=== PATIENT | female | born 1975 | race Hispanic/Latino ===

== ENCOUNTER 2019-08-12 13:51 | Emergency (ER) | payer SELFPAY ==
[2019-08-12 14:47] LABS: #Basophils 0.1 thou/uL (0.0-0.2); #Eosinphils 0.1 thou/uL (0.0-0.7); #Lymphocytes 1.5 thou/uL (1.20-3.40); #Monocytes 0.4 thou/uL (0.11-0.59); #Neutrophils 6.2 thou/uL (1.40-6.50); %Basophils 0.8 % (0.0-1.0); %Eosinophils 1.8 % (0.0-10.0); %Lymphocytes 17.9 % (21.0-51.0); %Monocytes 4.3 % (0.0-10.0); %Neutrophils 75.3 % (42.0-75.0); Hemoglobin 14.8 g/dL (12.0-16.0); Mean Corpuscular HGB CONC 33.8 g/dL (32.0-36.0); Mean Corpuscular Hemoglobin 30.5 pg (27.0-31.0); Mean Corpuscular Volume 90.4 fL (78.0-98.0); Mean Platelet Volume 8.7 fL (7.4-10.4); Platelet Count 265 thou/uL (130-400); RBC Distribution Width 12.2 % (11.5-14.5); Red Blood Cell (RBC) Count 4.85 mill/uL (4.20-5.40); White Blood Cell (WBC) Count 8.3 thou/uL (4.8-10.8)
[2019-08-12 14:50] LABS: BHCG - Serum POSITIVE (NEGATIVE); Pregs Control Background? CLEAR/WHITE (CLR/WHITE); Pregs Control Bar Appear? YES (CONTROL BAR)
[2019-08-12 15:07] LABS: Bacteria/HPF None Seen HPF (None Seen); Bilirubin Negative (Negative); Blood, Urine 2+ (Negative); Clarity Clear (Clear); Glucose, Urine (Dipstick) Normal (Negative); Leukocyte Negative Leu/uL (Negative); Nitrite Negative (Negative); Protein, Urine (Dipstick) Negative (Neg-Trace); Squamous Epithelial 0-3 HPF (0-3); Urobilinogen Normal mg/dL (Less than 2); WBC/HPF 0-3 HPF (0-3)
--- NOTE | 2019-08-12 15:48 | ULT ---
ULTRASOUND PELVIC ULTRASOUND TRANSVAGINAL DOPPLER DUPLEX: DATE: 08/12/2019 HISTORY: 44 year old female with first trimester vaginal bleeding. TECHNIQUE: Transabdominal transducer and endovaginal transducer used to visualize intrapelvic contents with gr scale, color-flow, and spectral analysis. FINDINGS: There is a misshapen gestational sac which is disproportionately large compared to the size of the fe karol pole. Biggs-rump length is 2.4 cm, corresponding to 9 weeks 0 days gestational age. No heart activity is detected. No subchorionic hemorrhage. Right ovary 2 x 2.5 x 1.5 cm with a 1 cm corpus luteal cyst, and blood flow demonstrated. Left ovary not visualized No free fluid in the cul-de-sac. IMPRESSION: First trimester intrauterine demise: Missed
== END 2019-08-12 15:51 | disposition home or self-care (01) ==
LOC: ERS 13:51
DX: O20.0 Threatened abortion (principal); Z3A.08 8 weeks gestation of pregnancy
CPT/HCPCS: 36415; 76856; 81003; 81015; 84702; 84703; 85025; 86900; 86901

== ENCOUNTER 2019-08-13 18:09 | Emergency (ER) | payer SELFPAY | END 2019-08-13 19:12 | disposition home or self-care (01) | LOC: ERS 18:09 | DX: O02.1 Missed abortion (principal); E78.5 Hyperlipidemia, unspecified; E78.00 Pure hypercholesterolemia, unspecified | CPT/HCPCS: 99283 ==

== ENCOUNTER 2019-08-13 21:59 | Emergency (ER) | payer SELFPAY ==
[2019-08-13 22:58] LABS: #Basophils 0.1 thou/uL (0.0-0.2); #Eosinphils 0.1 thou/uL (0.0-0.7); #Lymphocytes 1.4 thou/uL (1.20-3.40); #Monocytes 0.6 thou/uL (0.11-0.59); #Neutrophils 9.2 thou/uL (1.40-6.50); %Basophils 0.5 % (0.0-1.0); %Lymphocytes 12.1 % (21.0-51.0); %Monocytes 4.9 % (0.0-10.0); %Neutrophils 81.5 % (42.0-75.0); Hemoglobin 12.7 g/dL (12.0-16.0); Mean Corpuscular HGB CONC 33.6 g/dL (32.0-36.0); Mean Corpuscular Hemoglobin 30.5 pg (27.0-31.0); Mean Corpuscular Volume 90.8 fL (78.0-98.0); Mean Platelet Volume 8.6 fL (7.4-10.4); Platelet Count 211 thou/uL (130-400); RBC Distribution Width 12.2 % (11.5-14.5); Red Blood Cell (RBC) Count 4.16 mill/uL (4.20-5.40); White Blood Cell (WBC) Count 11.3 thou/uL (4.8-10.8)
[2019-08-13 23:20] LABS: ALT (SGPT) 12 U/L (8-55); AST (SGOT) 13 U/L (5-34); Albumin 4.3 g/dL (3.5-5.0); Alkaline Phosphatase 54 U/L (40-110); Anion Gap 16 mmol/L (10-20); BUN (Urea Nitrogen) 13 mg/dL (7.0-18.7); Calc. Creatinine Clearance 0 mL/min (70-130); Calcium 9.2 mg/dL (7.8-10.44); Carbon Dioxide 21 mmol/L (22-29); Chloride 103 mmol/L (98-107); Estimated GFR-MDRD 80; Glucose 114 mg/dL (70-105); Potassium 3.8 mmol/L (3.5-5.1); Protein, Total 7.3 g/dL (6.0-8.3); Sodium 136 mmol/L (136-145)
--- NOTE | 2019-08-13 23:22 | ULT ---
Pelvic sonogram transabdominal imaging HISTORY: Spontaneous . COMPARISON: 08/12/2019. FINDINGS: Urinary bladder is decompressed. Uterus is retroverted and 9.3 cm length on the current aline dy. Endometrium is now 1.3 cm. No intrauterine gestational content is apparent. Minimal free fluid in the cul-de-sac. Each ovary has normal appearance. IMPRESSION : Interval passage of the products of conception. No new abnormalities.
== END 2019-08-13 23:54 | disposition home or self-care (01) ==
LOC: ERS 21:59
DX: R55 Syncope and collapse (principal); E78.5 Hyperlipidemia, unspecified; E78.00 Pure hypercholesterolemia, unspecified
CPT/HCPCS: 36415; 76856; 80053; 84484; 85025; 86850; 86900; 86901; 93005

== ENCOUNTER 2019-10-17 23:24 | Emergency (ER) | payer MEDICAID, SELFPAY ==
[2019-10-17 23:53] LABS: #Lymphocytes 1.3 thou/uL (1.20-3.40); #Monocytes 0.2 thou/uL (0.11-0.59); #Neutrophils 6.9 thou/uL (1.40-6.50); %Basophils 0.1 % (0.0-1.0); %Eosinophils 0.3 % (0.0-10.0); %Monocytes 2.6 % (0.0-10.0); Hemoglobin 13.4 g/dL (12.0-16.0); Mean Corpuscular Volume 88.4 fL (78.0-98.0); Mean Platelet Volume 8.4 fL (7.4-10.4); Platelet Count 281 thou/uL (130-400); RBC Distribution Width 11.6 % (11.5-14.5); Red Blood Cell (RBC) Count 4.46 mill/uL (4.20-5.40); White Blood Cell (WBC) Count 8.4 thou/uL (4.8-10.8)
[2019-10-18 00:14] LABS: ALT (SGPT) 21 U/L (8-55); AST (SGOT) 15 U/L (5-34); Albumin 4.7 g/dL (3.5-5.0); Alkaline Phosphatase 65 U/L (40-110); Anion Gap 12 mmol/L (10-20); BUN (Urea Nitrogen) 10 mg/dL (7.0-18.7); Bilirubin, Total 0.7 mg/dL (0.2-1.2); Calc. Creatinine Clearance 0 mL/min (70-130); Calcium 9.7 mg/dL (7.8-10.44); Carbon Dioxide 25 mmol/L (22-29); Chloride 103 mmol/L (98-107); Estimated GFR-MDRD 80; Globulin 3.5 g/dL (2.4-3.5); Glucose 120 mg/dL (70-105); Lipase 21 U/L (8-78); Protein, Total 8.2 g/dL (6.0-8.3); Sodium 136 mmol/L (136-145)
[2019-10-18 00:50] LABS: Bilirubin Negative (Negative); Blood, Urine Negative (Negative); Clarity Clear (Clear); Glucose, Urine (Dipstick) Normal (Negative); Ketone, Urine Negative (Negative); Leukocyte Negative Leu/uL (Negative); Nitrite Negative (Negative); Protein, Urine (Dipstick) Negative (Neg-Trace); Specific Gravity, Urine 1.007 (1.002-1.036); Urobilinogen Normal mg/dL (Less than 2)
== END 2019-10-18 02:17 | disposition home or self-care (01) ==
LOC: ERS 23:24
DX: R42 Dizziness and giddiness (principal); E78.5 Hyperlipidemia, unspecified
CPT/HCPCS: 36415; 80053; 81003; 83690; 85025; 93005